=== PATIENT | male | born 1945 | race Caucasian/White ===

== ENCOUNTER 2016-08-01 10:57 | Day surgery (SDC) | payer OTHER ==
[~2016-08-01] VITALS: Ht 177.8 cm; Wt 76.2 kg
[~2016-08-01 10:57] MED LIST: CELEBREX200 MG PO; CYANOCOBALAM1000 MCG PO; GLUCOPHAGE1000 MG PO; LIPITOR20 MG PO; LO-DOSE ASPIRIN81 M2 PO; LORCET 5-325 M1 EACH PO; NEURONTIN100 MG PO; VITAMIN D-32000 UNI2 PO
[2016-08-01 11:44] LABS: POINT-OF-CARE METER ID UU14174212
== END 2016-08-01 13:27 | disposition home or self-care (01) ==
LOC: PAIN 10:57 → SDC 12:30 → PAIN 12:30
PROVIDERS: Anesthesiology Pain Medicine
PROC: 015B3ZZ Destruction of Lumbar Nerve, Percutaneous Approach (ICD-10-PCS; principal; 2016-08-01)
DX: M47.896 Other spondylosis, lumbar region (principal); F41.1 Generalized anxiety disorder; M54.5 Low back pain; Z79.82 Long term (current) use of aspirin; E11.9 Type 2 diabetes mellitus without complications
CPT/HCPCS: 82948; J1030; J2250; J3010; S0020

== ENCOUNTER 2016-10-17 07:16 | Day surgery (SDC) | payer OTHER ==
[~2016-10-17] VITALS: Ht 175.3 cm; Wt 76.2 kg
[2016-10-17 07:57] LABS: POINT-OF-CARE METER ID UU14174212
== END 2016-10-17 09:27 | disposition home or self-care (01) ==
LOC: PAIN 07:16 → SDC 08:15 → PAIN 08:15
PROVIDERS: Anesthesiology Pain Medicine
PROC: 015B3ZZ Destruction of Lumbar Nerve, Percutaneous Approach (ICD-10-PCS; principal; 2016-10-17)
DX: M47.816 Spondylosis without myelopathy or radiculopathy, lumbar region (principal); G89.29 Other chronic pain; Z79.82 Long term (current) use of aspirin; M54.5 Low back pain; M54.2 Cervicalgia
CPT/HCPCS: 82948; J1030; J2250; J3010; S0020

== ENCOUNTER 2017-09-04 07:36 | Day surgery (SDC) | payer OTHER ==
[~2017-09-04] VITALS: Ht 172.7 cm; Wt 78.0 kg
[~2017-09-04 07:36] MED LIST changes: +ULTRAM50 MG PO
== END 2017-09-04 09:26 | disposition home or self-care (01) ==
LOC: PAIN 07:36 → SDC 08:30 → PAIN 08:30
PROVIDERS: Anesthesiology Pain Medicine
PROC: 3E0T3TZ Introduction of Destructive Agent into Peripheral Nerves and Plexi, Percutaneous Approach (ICD-10-PCS; principal; 2017-09-04)
PROC: BR161ZZ Fluoroscopy of Lumbar Facet Joint(s) using Low Osmolar Contrast (ICD-10-PCS; principal; 2017-09-04)
DX: M47.816 Spondylosis without myelopathy or radiculopathy, lumbar region (principal); M54.5 Low back pain; M54.2 Cervicalgia; M54.9 Dorsalgia, unspecified; G89.29 Other chronic pain; E11.9 Type 2 diabetes mellitus without complications; Z95.1 Presence of aortocoronary bypass graft; Z79.82 Long term (current) use of aspirin; Z79.84 Long term (current) use of oral hypoglycemic drugs
CPT/HCPCS: 82948; J1030; J2250; J3010; S0020

== ENCOUNTER 2017-09-11 07:26 | Day surgery (SDC) | payer OTHER ==
[~2017-09-11] VITALS: Ht 172.7 cm; Wt 78.0 kg
== END 2017-09-11 09:40 | disposition home or self-care (01) ==
LOC: PAIN 07:26 → SDC 08:30 → PAIN 09:40
PROVIDERS: Anesthesiology Pain Medicine
DX: M47.816 Spondylosis without myelopathy or radiculopathy, lumbar region (principal); M54.5 Low back pain; G89.29 Other chronic pain; M54.2 Cervicalgia; E11.9 Type 2 diabetes mellitus without complications; Z95.1 Presence of aortocoronary bypass graft; Z79.82 Long term (current) use of aspirin; Z79.84 Long term (current) use of oral hypoglycemic drugs
CPT/HCPCS: 82948; J1030; J2250; J3010; S0020